=== PATIENT | male | born 1965 | race Caucasian/White ===

== ENCOUNTER 2024-04-14 04:17 | Day surgery (SDC) | payer BC ==
[2024-02-27 14:52] VITALS: BMI 26.9
[2024-04-14 09:41] VITALS: TEMP 98
[2024-04-14 10:21] VITALS: RESP 16
[2024-04-14 10:22] VITALS: BP 111/88; PULSE 98
== END 2024-04-14 10:20 | disposition home or self-care (01) ==
LOC: JASU-ENDO 04:17
PROVIDERS: ATTEND Internal Medicine Gastroenterology
PROC: 0DJD8ZZ Inspection of Lower Intestinal Tract, Via Natural or Artificial Opening Endoscopic (ICD-10-PCS; principal; 2024-04-14 09:00)
DX: Z12.11 Encounter for screening for malignant neoplasm of colon (principal); Z86.0100 Personal history of colon polyps, unspecified